=== PATIENT | male | born 1995 | race Caucasian/White ===

== ENCOUNTER 2023-06-01 11:15 | Day surgery (SDC) | payer OTHER ==
[~2023-06-01] VITALS: Ht 190.5 cm; Wt 89.8 kg
[~2023-06-01 11:15] MED LIST: ceFAZolin SOD 2 GM in IV 1 EA IV ONE
[2023-06-01] MEDS ORDERED: LR 1,000 ML IV SCH ×2 (11:40→15:45)
[2023-06-01] MEDS ORDERED: TRANEXAMIC ACID 100 MG/ML 10ML VIAL As Ordered ONE (12:29)
[2023-06-01] MEDS ORDERED: LIDOCAINE 2% 100MG/5ML SDV (FOR ANES.) As Ordered ONE (13:02)
[2023-06-01] MEDS ORDERED: propofoL 200 MG/20 ML VIAL As Ordered ONE (13:02)
[2023-06-01] MEDS ORDERED: MIDAZOLAM INJ 2MG/2ML VIAL As Ordered ONE (13:03)
[2023-06-01] MEDS ORDERED: fentaNYL 100 MCG/2 ML INJECTION As Ordered ONE (13:03)
[2023-06-01] MEDS ORDERED: ROCURONIUM BROMIDE 50MG/5ML VIAL As Ordered ONE ×2 (13:20→13:49)
[2023-06-01] MEDS ORDERED: PHENYLephrine 500MCG 5ML (100MCG/ML) SYRINGE As Ordered ONE (13:31)
[2023-06-01] MEDS ORDERED: ePHEDrine SULFATE 25 MG/5 ML(5MG/ML) SYRINGE As Ordered ONE (13:39)
[2023-06-01] MEDS ORDERED: KETOROLAC 60MG 2ML VIAL As Ordered ONE (13:48)
[2023-06-01] MEDS ORDERED: ONDANSETRON 4MG 2ML VIAL As Ordered ONE (13:48)
[2023-06-01] MEDS ORDERED: ACETAMINOPHEN 1000MG 100ML IV BAG As Ordered ONE (13:48)
[2023-06-01] MEDS ORDERED: SUGAMMADEX SODIUM 500 MG/5 ML VIAL (BRIDION) As Ordered ONE (13:48)
[2023-06-01] MEDS ORDERED: HYDROmorphone HCL 2MG/ML 1ML VIAL As Ordered ONE (14:04)
[2023-06-01] MEDS ORDERED: VANCOMYCIN 1000MG/20ML VIAL As Ordered ONE (15:16)
[2023-06-01] MEDS ORDERED: oxyCODONE 5MG TAB PO PRN (15:45)
[2023-06-01] MEDS ORDERED: ONDANSETRON 4MG 2ML VIAL IV PRN (15:45)
[2023-06-01] MEDS ORDERED: fentaNYL 100 MCG/2 ML INJECTION IV PRN (15:45)
[2023-06-01] MEDS: HYDROMORPHONE HCL 0.5 MG/ 0.5 ML SYRINGE IV PRN ×2 (16:02→16:08)
[2023-06-01 17:13] VITALS: BP 128/69; TEMP 97.9; O2SAT 100
== END 2023-06-01 17:26 | disposition home or self-care (01) ==
LOC: M SDC 11:15
PROVIDERS: ATTEND Orthopaedic Surgery
DX: S92.351A Displaced fracture of fifth metatarsal bone, right foot, initial encounter for closed fracture (principal); M25.474 Effusion, right foot; Y99.1 Military activity; Y92.84 Military training ground as the place of occurrence of the external cause; F17.220 Nicotine dependence, chewing tobacco, uncomplicated; Y93.01 Activity, walking, marching and hiking
CPT/HCPCS: 28485; 76000; C1713; J0131; J0690; J1100; J1170; J1885; J2250; J2371; J2405; J3010; J3370